=== PATIENT | female | born 2000 | race Caucasian/White ===

== ENCOUNTER 2022-05-15 13:48 | Outpatient (CLI) | payer OTHER, SELFPAY ==
[2022-05-15 16:41] LABS: Chlamydia DNA Amplified* NOT DETECTED (No Detected); GC DNA Amplified* NOT DETECTED (No Detected)
== END 2022-05-15 13:49 | disposition home or self-care (01) ==
LOC: NFLDREF 13:48
PROVIDERS: Visit Provider Nurse Practitioner Family
DX: R30.0 Dysuria (principal); Z72.51 High risk heterosexual behavior
CPT/HCPCS: 87086; 87186; 87491; 87591